=== PATIENT | male | born 1950 | race African-American/Black ===

== ENCOUNTER 2020-10-25 15:13 | Inpatient (IN) | payer OTHER ==
[~2020-10-25] VITALS: Ht 188 cm; Wt 117.0 kg
[~2020-10-25 15:13] MED LIST: BAYER CHEWABLE81 MG PO; CILOSTAZOL 100100 MG PO; FISH OIL 1,0001 EAC5 PO; FLEXERIL PO; LOSARTAN-HCTZ1 EAC1 PO; MOTION RELIEF25 MG PO; NIASPAN ER 101000 M1 PO; NORCO 5-325 TA1 EACH PO; PRANDIN; PRANDIN PO; TOPROL XL50 MG PO; VERAPAMIL ER180 MG PO; VERAPAMIL SR 1120 MG PO; VITAMIN D3400 UNI2 PO
[2020-10-25 15:14] VITALS: BP 162/79
[2020-10-25 15:31] LABS: ABSOLUTE NEUTROPHILS 10.8 thou/uL (1.4-8.2); BASOPHILS 0.3 % (0.0-2.0); EOSINOPHILS 0.1 % (0.0-3.0); HEMATOCRIT 38.6 % (42.0-52.0); HEMOGLOBIN 12.8 gm/dL (14.0-18.0); LYMPHOCYTES 6.1 % (24.0-44.0); MCH 27.5 pg (26.0-34.0); MCHC 33.1 g/dL (28.0-37.0); MONOCYTES 11.4 % (1.0-8.0); PLATELET COUNT 200 thou/uL (150-400); POLYS 82.1 % (36.0-66.0); RBC 4.65 mil/uL (4.50-6.00); RDW 14.8 % (10.5-14.5); WBC 13.2 thou/uL (4.0-11.0)
[2020-10-25 15:36] LABS: CALCIUM 8.2 mg/dL (8.5-10.1); CREATININE 1.8 mg/dL (0.7-1.3)
[2020-10-25 15:53] LABS: ALBUMIN 3.1 g/dL (3.4-5.0); TOTAL BILIRUBIN 0.5 mg/dL (0.2-1.0); TOTAL PROTEIN 7.2 g/dL (6.4-8.2)
[2020-10-25 17:51] LABS: URINE BILIRUBIN NEGATIVE (Negative); URINE BLOOD 3+ (Negative); URINE CLARITY CLEAR; URINE COLOR YELLOW; URINE GLUCOSE-RANDOM* NEGATIVE (Negative); URINE KETONES NEGATIVE (Negative); URINE LEUKOCYTES-REFLEX NEGATIVE (Negative); URINE NITRITE-REFLEX NEGATIVE (Negative); URINE PROTEIN (DIPSTICK) 3+ (Negative); URINE SPECIFIC GRAVITY 1.015 (1.005-1.035); URINE UROBILINOGEN 0.2 E.U./dl (0.2-1.0)
[2020-10-25 17:59] LABS: SQUAMOUS 0-3 Few /LPF (0-3)
[2020-10-25 18:00] LABS: BACTERIA-REFLEX 1-9 Few /HPF (None Seen); HYALINE CASTS 0-3 Few /LPF (None Seen); URINE RBC 3-10 Few /HPF (NONE SEEN); URINE WBC-REFLEX 0-5 Rare /HPF (0-5)
[2020-10-25 18:02] LABS: CRYSTALS None Seen /LPF (None Seen)
[2020-10-25] MEDS ORDERED: ZOCOR 20 MG TAB20 M1 PO (19:23)
[2020-10-25] MEDS ORDERED: PIOGLITAZONE30 MG PO (19:23)
[2020-10-25] MEDS ORDERED: VERAPAMIL HCL240 MG PO (19:24)
[2020-10-25] MEDS ORDERED: FLEXERIL PO (19:24)
[2020-10-25] MEDS ORDERED: GLUCOPHAGE XR750 MG PO (19:24)
[2020-10-25] MEDS ORDERED: CILOSTAZOL 100100 M1 PO (19:24)
[2020-10-25 20:34] VITALS: BP 149/91
--- NOTE | 2020-10-25 20:35 | NUR ---
ATTEMPTED TO CALL REPORT THIS NURSE WAS TOLD THE NURSE IS IN WITH A PATIENT.
[2020-10-25 21:10] VITALS: BP 190/97
[2020-10-25 21:19] VITALS: BP 190/91
[2020-10-26] VITALS (7 sets, daily range): BP systolic 101–150; BP diastolic 56–97
--- NOTE | 2020-10-26 02:30 | NUR ---
PT ALERT AND ORIENTED X4. ARRIVED FROM ER AROUND 2129. BP ELEVATED. HYDRALAZINE GIVEN WITH NO CHANGE IN BP. NOTIFIED BILLBOARD ERECTOR . CLONIDINE GIVEN ORDERED. SBP NOW DOWN TO 140. PT IS SLEEPING PRESENTLY. HIS DIARRHEA HAS SLOWED FOR AWHILE NOW. HE HAS BEEN INCONTINENT AT LEAST 4 TIMES TONIGHT OF LG GREEN LIQUID STOOLS. STOOL FOR CDIFF SENT IN ER. IV CIPR AND FLAGYL INFUSED. NS AT 126 ML/HR INFUSING. INSTRUCTED PT ON FALL PRECAUTIONS, CALL LIGHT. ORIENTED TO RM. WILL CONTINUE TO MONITOR PT FOR CHANGES.
[2020-10-26 03:26] LABS: HEMOGLOBIN 12.3 gm/dL (14.0-18.0); MCH 27.5 pg (26.0-34.0); MCHC 33.1 g/dL (28.0-37.0); MCV 83.2 fL (80.0-100.0); RBC 4.45 mil/uL (4.50-6.00); RDW 14.7 % (10.5-14.5); WBC 13.7 thou/uL (4.0-11.0)
[2020-10-26 03:40] LABS: CREATININE 1.8 mg/dL (0.7-1.3)
[2020-10-26 04:28] LABS: POTASSIUM 2.7 mmol/L (3.5-5.1)
--- NOTE | 2020-10-26 05:14 | NUR ---
PT CONTINUESTO HAV LOOSE LIQUID STOOLS. COSTUMED CHARACTER ENTERTAINER NOTIFIED RE K 2.7. POTASSIUM 40 PO GIVEN.
--- NOTE | 2020-10-26 08:15 | NUR ---
PT'S HR UP TO 140S THIS AM. AT 0650. METOPROLOL GIVEN EARLY ORDERED BY CLAIM ADJUSTER, NOTIFIED DAY SHIFT LUZMA MARCELINO TO F/U WITH HR. HE NOTIFIED EKG DONE.
--- NOTE | 2020-10-26 10:57 | NUR ---
Pt admit with diarrhea and poor appetite last few days. Reported by pt to have recently started taking new "diet pills" that he apparently ordered online. Stopped taking when diarrhea worsened. 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 Poor intake r/t feeling unwell d/t loose bowels. C-Diff pending. Noted with K 2.7, IV replacement. New dx A-Fib. PMH: DM, HTN, PVD. Unknown weight hx. BMI 33.2, obese I. IVF and IV cipro and flagyl in place. No PO intake since admit. Will place at low nutrition risk and initiate Glucerna BID for wt management d/t low PO intake last few days.
[2020-10-26 11:16] LABS: MAGNESIUM 1.9 mg/dL (1.8-2.4); POTASSIUM 3.2 mmol/L (3.5-5.1)
--- NOTE | 2020-10-26 11:38 | EKG ---
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 : 1950 Requested By: Molina Cordoba Order Number: [id number] : Ke Becker Measurements Intervals [place] Rate: 160 P: 102 IN: 70 QRS: -72 QRSD: 99 T: 19 QT: 310 QTc: 506 Interpretive Statements Supraventricular tachycardia, possibly Atrial Flutter Inferior infarct, old Consider anterior infarct Compared to ECG 09/05/2012 17:53:24 Sinus rhythm no longer present Myocardial infarct finding still present Electronically Signed On 10-26-2020 11:37:55 CDT by Ke Becker [email or web address] <ELECTRONICALLY SIGNED> By: Ke Becker MD, [facility] 10/26/20 1137 08 08 Ke Becker MD, [facility] /EPI
--- NOTE | 2020-10-26 16:27 | NUR ---
assumed care of pt at 0700. HR in 140's starting this morning approx 0600. pt asymptomatic. cardiology consulted - SVT on EKG. instructed to start cardizem gtt. gtt maxed with no effect. cardio aware. frequent watery green stools. cdif negative. family at bedisde. pt reports feeling overall better than yesterday. up to bsc. potassium replaced per protocol. calls appropriately. wcm.
[2020-10-27] VITALS (8 sets, daily range): BP systolic 102–131; BP diastolic 62–82
[2020-10-27 05:37] LABS: HEMATOCRIT 42.3 % (42.0-52.0); HEMOGLOBIN 14.2 gm/dL (14.0-18.0); MCHC 33.5 g/dL (28.0-37.0); MCV 83.5 fL (80.0-100.0); RBC 5.07 mil/uL (4.50-6.00); RDW 15.4 % (10.5-14.5); WBC 10.5 thou/uL (4.0-11.0)
[2020-10-27 05:43] LABS: ANION GAP 15 mmol/L (7-16); BUN 27 mg/dL (7-18); CHLORIDE 99 mmol/L (98-107); CHOLESTEROL 72 mg/dL (<200); CO2 20 mmol/L (21-32); CREATININE 2.2 mg/dL (0.7-1.3); GLUCOSE 124 mg/dL (74-106); HDL CHOLESTEROL 30 mg/dL (>40); LDL CHOLESTEROL 17 mg/dL (<100); MAGNESIUM 2.1 mg/dL (1.8-2.4); POTASSIUM 3.4 mmol/L (3.5-5.1); SODIUM 134 mmol/L (136-145); TC:HDL 2.4 Ratio (Not establshd); TRIGLYCERIDE 129 mg/dL (<150); VLDL 26 mg/dL (<40)
[2020-10-27 05:47] LABS: SERUM ASSESSMENT Clear
--- NOTE | 2020-10-27 14:53 | 2DMMODE ---
[address] [address] 2 D/M-MODE ECHOCARDIOGRAM Name: KAILYN REINOSO Room #: 363-P ADM IN M.R.#: [id number] Admission: 10/25/20 Attend Phys: Molina Cordoba MD Discharge: Date of : 48 Report #: [id number] THIS REPORT FOR: cc: ASHLEY LANCASTER Physician not on staff Lebron Vargas MD ~ APPROVED REPORT Study performed: 10/27/2020 13:34:31 EXAM: Comprehensive 2D, Doppler, and color-flow Echocardiogram Patient Location: Bedside Room #: 363 Status: routine BSA: 2.42 HR: 148 bpm BP: 102/62 mmHg Rhythm: Atrial Fibrillation Other Information Study Quality: Technically Limited Indications Diabetes Atrial Fibrillation Hypertension/HDD Left Ventricle The left ventricle is normal size. Mild concentric left ventricular hypertrophy. Left ventricular systolic function is mildly decreased. LVEF is 40-45%. This study is not technically sufficient to allow evaluation of the LV diastolic function. Right Ventricle The right ventricle is normal size. The right ventricular systolic function is normal. Atria Left atrium is at the upper limits of normal. Right atrium is at the upper limits of normal. Aortic Valve The aortic valve is normal in structure. No aortic regurgitation is present. There is no aortic valvular stenosis. [address] [address] 2 D/M-MODE ECHOCARDIOGRAM Name: KAILYN REINOSO JR Room #: 363-P ADM IN M.R.#: [id number] Admission: 10/25/20 Attend Phys: Molina Cordoba MD Discharge: Date of : 48 Report #: [id number] Mitral Valve The mitral valve is normal in structure. Trace mitral regurgitation. No evidence of mitral valve stenosis. Tricuspid Valve The tricuspid valve is normal in structure. There is no tricuspid valve regurgitation noted. Pulmonic Valve The pulmonary valve is normal in structure. There is no pulmonic valvular regurgitation. Great Vessels The aortic root is normal in size. IVC is normal in size and collapses >50% with inspiration. Pericardium There is no pericardial effusion. <Conclusion> The left ventricle is normal size. Mild concentric left ventricular hypertrophy. LVEF is 40-45%. The right ventricle is normal size. Left atrium is at the upper limits of normal. Right atrium is at the upper limits of normal. The aortic valve is normal in structure. The mitral valve is normal in structure. Trace mitral regurgitation. The tricuspid valve is normal in structure. The pulmonary valve is normal in structure. The aortic root is normal in size. There is no pericardial effusion. <ELECTRONICALLY SIGNED> By: Lebron Vargas MD 10/27/20 1453 1453 1453 Lebron Vargas MD /INF
--- NOTE | 2020-10-27 15:34 | NUR ---
NITIAL ASSESSMENT: SW reviewed chart and spoke with nursing and attending physician. Pt was admitted from home due to diarrhea/sepsis. C.diff was negative. Cardiology consulted. Pt to have echo today and is on Cardizem gtt. SW attempted to meet with pt earlier today. PT is on hold due to elevated HR. Per chart, pt lives at home with his family. Prior to admission, pt was independent with ADLs. No use of DME. 4 steps to enter the home. 14 steps inside. Pt's PCP is listed as Dr. Lalito Rasmussen. Plan is for pt to discharge home when medically stable. SW to follow up with pt at a later time to discuss discharge plan.
--- NOTE | 2020-10-27 16:15 | NUR ---
REPORT FROM MICRO, PT HAS BLOOD CULTURE POSITIVE RESULTS, GRAM POSITIVE. REPORT PROVIDED TO NURSE.
--- NOTE | 2020-10-27 19:30 | NUR ---
CARE ASSUMED THIS AM, ALERT AND ORIENTED X4, DENIES ANY CHEST, NAUSEA AND VOMITTING. CONTINUE TO HAVE WATERY GREEN STOOLS. UP TO BSC INDEPENDENTLY. HR CONTINUES TO BE IN THE 140'S. CARDIZEM DRIP AT 20ML/HR, BP STABLE. PRN LOPRESSOR GIVEN PER ORDER. DR. YUSUF AWARE ABOUT PT HR. FALL PRECAUTIONS IN PLACE. DENIES ANY NEEDS ASHWIN
[2020-10-28 03:24] LABS: HEMATOCRIT 36.1 % (42.0-52.0); MCH 27.7 pg (26.0-34.0); MCHC 33.5 g/dL (28.0-37.0); MCV 82.7 fL (80.0-100.0); RBC 4.37 mil/uL (4.50-6.00); RDW 15.1 % (10.5-14.5); WBC 7.9 thou/uL (4.0-11.0)
[2020-10-28 03:30] LABS: HEMOGLOBIN 12.1 gm/dL (14.0-18.0)
[2020-10-28 03:47] LABS: CALCIUM 7.2 mg/dL (8.5-10.1); CREATININE 1.8 mg/dL (0.7-1.3); POTASSIUM 3.3 mmol/L (3.5-5.1)
[2020-10-28 04:42] VITALS: BP 113/60
--- NOTE | 2020-10-28 06:44 | NUR ---
PT IS A/OX4. UP TO BSC FOR LARGE AMOUNTS OF DARK GREEN LIQUID STOOL. POC WITH IVF AND CARD DRIP AT 20. HR STILL IN 140'S. PT STILL NOT EATING MUCH. HOURLY ROUNDING.
[2020-10-28 07:33] VITALS: BP 127/85
[2020-10-28 09:20] VITALS: BP 122/72
--- NOTE | 2020-10-28 12:30 | NUR ---
PT HR IN THE 80'S AND 90'S. CARDIZEM DRIP TITRATED DOWN AND DISCONTINUED. CARDIOLOGY AWARE. PT UP TO BATHROOM WITH ONE ASSIST. SEEMS TO HAVE A BETTER APPETITE TODAY. DENIES ANY NEEDS AT MOMENT, WILL CONTINUE TO MONITOR
--- NOTE | 2020-10-28 15:16 | NUR ---
SW reviewed chart and spoke with nursing and attending physician. Pt remains on cardizem gtt. Pt also on IV abx and IV BP meds. Discharge home is anticipated in 1-2 days. PT eval pending. Plan is for pt to discharge home when medically stable. JACOB is following to assist as needed with discharge planning.
[2020-10-28 15:40] VITALS: BP 138/77
[2020-10-28 19:29] VITALS: BP 152/76
--- NOTE | 2020-10-28 22:31 | NUR ---
PT VISITNG WITH FAMILY. IVF INTACT. PT USING BSC, STEADY GAIT. LOOSE GREEN STOOL. PLAN FOR DC IN AM. PT DECLINED HS SNACK.
[2020-10-29 04:45] VITALS: BP 141/65; BP 157/73
[2020-10-29 07:38] VITALS: BP 137/61
[2020-10-29 11:54] LABS: CALCIUM 7.9 mg/dL (8.5-10.1); CREATININE 1.5 mg/dL (0.7-1.3); POTASSIUM 3.5 mmol/L (3.5-5.1)
[2020-10-29] MEDS ORDERED: XARELTO20 MG PO (12:59)
[2020-10-29] MEDS ORDERED: FLAGYL500 M1 PO (13:00)
[2020-10-29] MEDS ORDERED: CIPRO500 M1 PO (13:00)
[2020-10-29 13:48] VITALS: BP 137/61
--- NOTE | 2020-10-29 14:02 | NUR ---
DISCHARGE NOTE: SW reviewed chart and spoke with nursing and attending physician. Pt is medically stable for discharge home today. Pt's family to provide transportation home. No SW discharge needs identified at this time, but is available to assist should needs arise.
--- NOTE | 2020-10-29 15:48 | NUR ---
assumed care of pt at 0700. pt alert and oriented no acute distress. reports feeling better. no complaints. diarrhea resolved. appetite improved. family at bedside. stable for discharge.
== END 2020-10-29 15:49 | disposition home or self-care (01) | DRG 871 ==
LOC: ER 15:13 → 3W 18:51 → EROBS 18:51 → 3W 20:54
PROVIDERS: Emergency Medicine; Nurse Practitioner; Nurse Practitioner Family; ADMIT Hospitalist; ATTEND Hospitalist
DX: A41.9 Sepsis, unspecified organism (principal); N17.0 Acute kidney failure with tubular necrosis; I47.1 Supraventricular tachycardia; I48.92 Unspecified atrial flutter; A09 Infectious gastroenteritis and colitis, unspecified; I48.91 Unspecified atrial fibrillation; Z20.822 Contact with and (suspected) exposure to COVID-19; I10 Essential (primary) hypertension; Z96.651 Presence of right artificial knee joint; Z96.641 Presence of right artificial hip joint; F12.90 Cannabis use, unspecified, uncomplicated; F17.210 Nicotine dependence, cigarettes, uncomplicated; E11.51 Type 2 diabetes mellitus with diabetic peripheral angiopathy without gangrene; E78.5 Hyperlipidemia, unspecified; E87.6 Hypokalemia; F41.9 Anxiety disorder, unspecified; I49.3 Ventricular premature depolarization; Z88.6 Allergy status to analgesic agent; Z79.82 Long term (current) use of aspirin; Z79.899 Other long term (current) drug therapy
CPT/HCPCS: 10879

== ENCOUNTER → 2020-12-01 | Outpatient (CLI) | payer OTHER ==
[~2020-12-01] MED LIST changes: +CILOSTAZOL 100100 M1 PO; +CIPRO500 M1 PO; +FLAGYL500 M1 PO; +GLUCOPHAGE XR750 MG PO; +PIOGLITAZONE30 MG PO; +VERAPAMIL HCL240 MG PO; +XARELTO20 MG PO; +ZOCOR 20 MG TAB20 M1 PO
== END ==
LOC: SJCVCIMAG 09:42
PROVIDERS: ATTEND Internal Medicine
DX: I48.91 Unspecified atrial fibrillation (principal); E11.9 Type 2 diabetes mellitus without complications; I10 Essential (primary) hypertension; F17.200 Nicotine dependence, unspecified, uncomplicated; Z79.82 Long term (current) use of aspirin; Z79.899 Other long term (current) drug therapy

== ENCOUNTER → 2021-01-10 | Outpatient (CLI) | payer OTHER | LOC: SJCVC 09:48 | PROVIDERS: ATTEND Internal Medicine | DX: R06.00 Dyspnea, unspecified (principal); I47.2 Ventricular tachycardia; I48.0 Paroxysmal atrial fibrillation; E11.51 Type 2 diabetes mellitus with diabetic peripheral angiopathy without gangrene; E78.5 Hyperlipidemia, unspecified; F17.210 Nicotine dependence, cigarettes, uncomplicated; Z79.82 Long term (current) use of aspirin; Z79.899 Other long term (current) drug therapy; Z88.6 Allergy status to analgesic agent ==

== ENCOUNTER → 2021-01-19 | Outpatient (CLI) | payer OTHER ==
[~2021-01-19] VITALS: Ht 185.4 cm; Wt 116.1 kg
[2021-01-19 08:21] VITALS: BP 169/75
[2021-01-19 09:10] LABS: HEMATOCRIT 36.8 % (42.0-52.0); HEMOGLOBIN 11.7 gm/dL (14.0-18.0); MCH 26.6 pg (26.0-34.0); MCHC 31.9 g/dL (28.0-37.0); MCV 83.3 fL (80.0-100.0); RBC 4.42 mil/uL (4.50-6.00); RDW 16.1 % (10.5-14.5); WBC 8.6 thou/uL (4.0-11.0)
[2021-01-19 09:12] LABS: CALCIUM 8.7 mg/dL (8.5-10.1); CREATININE 1.5 mg/dL (0.7-1.3); POTASSIUM 3.6 mmol/L (3.5-5.1)
--- NOTE | 2021-01-19 10:35 | EKG ---
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: DMITRY : 1950 Requested By: Lebron Vargas Order Number: [id number] MD: Ke Becker Measurements Intervals [place] Rate: 62 P: 2 [place]: 210 QRS: -40 QRSD: 95 T: 64 QT: 459 QTc: 467 Interpretive Statements Sinus rhythm Anterior infarct, old Baseline wander in lead(s) II,III,aVF Compared to ECG 10/26/2020 08:00:28 Atrial flutter no longer present Supraventricular tachycardia no longer present Myocardial infarct finding still present Electronically Signed On 01-19-2021 10:35:13 CDT by Ke Becker [email or web address] <ELECTRONICALLY SIGNED> By: Ke Becker MD, FAC 01/19/21 1035 0852 0852 Ke Becker MD, [facility] /EPI
--- NOTE | 2021-02-02 13:04 | CATHLAB ---
[facility] [place] [address] INVASIVE PROCEDURE REPORT Name: KAILYN REINOSO JR Room #: REG MARCO ANTONIO ChavesTawanaGrettaTawana#: [id number] Admission: 01/19/21 Attend Phys: Lebron Vargas Discharge: Date of : 48 Report #: [id number] THIS REPORT FOR: cc: Lalito LANCASTER MD, Aaron MD Lammoglia, Francisco J. MD ~ APPROVED REPORT Study performed: 01/19/2021 09:20:58 Patient Details Patient Status: Out-Patient Room #: The patient is a 70 year-old male Event Personnel Lebron Vargas Exterior Door Installer, José Luis Allen RN RN, Khushbu Connelly RTR, Alexandra Chandler Ja'net RTR Monitor Procedures Performed Left Heart Cath w/or w/o Coronaries [id number] [facility] Art Access - R femoral artery* 16691 Initial Mod Sed Same Phys/QHP Gr 832885 90705 Mod Sed Same Phys/QHP Ea [id number] Hemostasis w/ Mynx, supervision of conscious sedation Indication Positive stress test, Chest pain Procedure Narrative The Right Groin^ was infiltrated with 1% Lidocaine subcutaneous anesthesia. A PINNACLE 6FR Sheath #[id number] sheath was inserted into the RFA^. Coronary angiography was performed using coronary diagnostic catheters. The right coronary system was accessed and visualized with a 6FR JR 5 #[id number] catheter. The left coronary system was accessed and visualized with a 6FR JL4 #[id number] catheter. The left ventricle was accessed and visualized with a 6FR JR 5 #[id number] catheter. Left ventricular/Aortic Valve gradient assessed via catheter pullback. Left ventriculogram was performed in 30 degree projection. Closure device was deployed with a Fr MYNXGRIP 6/7F #[id number]. The patient tolerated the procedure well and there were no complications associated with the procedure. There was no hematoma. Intraoperative Conscious Sedation [facility] [address] [place] [address] INVASIVE PROCEDURE REPORT Name: KAILYN REINOSO Room #: REG [facility]#: [id number] Admission: 01/19/21 Attend Phys: Lebron Plaza Discharge: Date of : 48 Report #: [id number] Sedation start time: 9:56 Case end Time: 10:34 Versed 2 mg Fluoro Time: 2.58 minutes Dose: DAP 7272.00 cGycm2 1080 mGy Contrast Type and Amount: Visipaque 80 ml Coronary Angiography The patient's coronary anatomy is right dominant. Diagnostic Cath Left Main Large-caliber vessel normal origin bifurcates left anterior descending left circumflex free of high-grade disease LAD Moderate caliber type II vessel which courses in the anterior ventricular sulcus giving rise to septal diagonal branches as it proceeds to the apex and terminates is a small caliber vessel at the left ventricular apex. Only mild luminal irregularities are noted at worst no significant obstructive lesion Diagonal 1 Moderate caliber vessel coursing along the anterolateral aspect of the left ventricle with mild luminal irregularities and no significant obstructive lesion Circumflex Moderate to large caliber nondominant vessel which bifurcates early into marginal branch which is moderate in size it then continues in the AV groove posteriorly giving rise to a posterior wall marginal branch. No high-grade lesions are noted OM1 Moderate caliber vessel coursing on the lateral aspect of the heart without high-grade lesions OM2 Small to moderate caliber vessel without significant stenosis Right Coronary Large-caliber dominant vessel which courses in the AV groove giving rise right ventricular and right atrial branches it then proceeds to the crux of the heart were gives rise to moderate to large caliber posterior descending artery. No significant stenosis are noted. The posterior circulation consists of a moderate posterolateral branch and an artery to the AV node without high-grade disease R PDA Moderate to large caliber vessel coursing in the posterior interventricular sulcus towards the apex without high-grade lesion Left Ventriculography Left Ventriculography was not performed. Hemodynamics [address] [address] INVASIVE PROCEDURE REPORT Name: KAILYN REINOSO JR Room #: REG Kevon#: [id number] Admission: 01/19/21 Attend Phys: Lebron Plaza Discharge: Date of : 48 Report #: [id number] The aortic pressure is 185/71 mmHg with a mean of 125 mmHg. The left ventricular pressure is 188/11 mmHg with a mean of mmHg. The left ventricular end diastolic pressure is 24 mmHg. Pullback from the left ventricle to the aorta revealed no gradient across the aortic valve. Conclusion 1. Essentially normal coronary arteries only mild luminal irregularities 2. Normal hemodynamics Recommendations Cardiac Risk Reduction Program Medical Therapy <ELECTRONICALLY SIGNED> By: Lebron Vargas MD 02/02/21 1304 1304 1304 Lebron Vargas MD /INF
== END | disposition home or self-care (01) ==
LOC: CATH 07:03
PROVIDERS: ATTEND Internal Medicine
DX: R94.39 Abnormal result of other cardiovascular function study (principal); R07.9 Chest pain, unspecified; I10 Essential (primary) hypertension; E11.9 Type 2 diabetes mellitus without complications; E78.5 Hyperlipidemia, unspecified; I73.9 Peripheral vascular disease, unspecified; I48.91 Unspecified atrial fibrillation; E66.9 Obesity, unspecified; F17.210 Nicotine dependence, cigarettes, uncomplicated; Z98.890 Other specified postprocedural states; Z79.899 Other long term (current) drug therapy; Z79.01 Long term (current) use of anticoagulants; Z82.49 Family history of ischemic heart disease and other diseases of the circulatory system